=== PATIENT | female | born 1995 | race Hispanic/Latino ===

== ENCOUNTER 2018-07-30 12:39 | Emergency (ER) | payer MEDICAID, OTHER | END 2018-07-30 14:27 | disposition home or self-care (01) | LOC: EDH 12:39 | DX: J09.X2 Influenza due to identified novel influenza A virus with other respiratory manifestations (principal); R11.2 Nausea with vomiting, unspecified; R19.7 Diarrhea, unspecified; R50.81 Fever presenting with conditions classified elsewhere | CPT/HCPCS: 87804 ==

== ENCOUNTER → 2020-11-13 | Outpatient (CLI) | payer OTHER | END | disposition home or self-care (01) | LOC: RAH 15:38 | PROVIDERS: ATTEND Nurse Practitioner Family | DX: Z13.6 Encounter for screening for cardiovascular disorders (principal) | CPT/HCPCS: 75571 ==

== ENCOUNTER 2021-04-05 22:20 | Emergency (ER) | payer BC, MEDICAID ==
[~2021-04-05] VITALS: Ht 157.5 cm; Wt 77.1 kg
[2021-04-05] MEDS ORDERED: MAG/ALUM/SIMETH 30 ML UDCUP PO ONE (23:00)
[2021-04-05] MEDS ORDERED: LIDOCAINE HCL 2% VISCOUS 15 ML UDCUP PO ONE (23:00)
[2021-04-05] MEDS ORDERED: IBUP-1552 PO (23:41)
[2021-04-05] MEDS ORDERED: ACET-2247 PO (23:41)
[2021-04-05 23:57] VITALS: BP 131/60
== END 2021-04-06 00:02 | disposition home or self-care (01) ==
LOC: EDH 22:53
DX: J02.9 Acute pharyngitis, unspecified (principal); B97.89 Other viral agents as the cause of diseases classified elsewhere; R05 Cough; Z79.899 Other long term (current) drug therapy
CPT/HCPCS: 87804; 87880